=== PATIENT | male | born 1995 | race Caucasian/White ===

== ENCOUNTER 2019-06-12 21:10 | Emergency (ER) | payer MEDICAID ==
[~2019-06-12] VITALS: Ht 175.3 cm; Wt 93.0 kg
[2019-06-12 21:12] VITALS: BP 135/82
--- NOTE | 2019-06-12 21:12 | NUR ---
ED Nurse Note: PT AMBULATED TO ED FROM HOME C/O OF RIGHT RING FINGER LACERATION D/T [employer] BOWEL AT 2014. PT FINGER IS DRESSED. LACERATION IS ACTIVELY BLEEDING.
[2019-06-12] MEDS ORDERED: NKM (21:16)
--- NOTE | 2019-06-12 21:22 | Emergency Room Report ---
History of Present Illness General Chief Complaint: Laceration Source: Patient Present Illness HPI Disclaimer: Please note that this report is being documented using [employer] technology. This can lead to erroneous entry secondary to incorrect interpretation by the dictating instrument. HPI: 23-year-old otherwise healthy [id number] male presents for evaluation of laceration over the ring finger of the right hand. Patient picked up a glass salad bowl approximately 8:30 PM that broken his hand causing a laceration to the distal pad of the left ring finger. He applied pressure and achieved hemostasis. Last tetanus update was January of this year which he got for school. Notes moderate pain but states he is feeling well. Able to flex and extend the digits. No prior history of hand injury. No other complaints at this time. PMH: Denies PSH: Denies Allergies: Denies Social Hx: Denies Allergies: Coded Allergies: No Known Allergies (Unverified , 06/12/19) Nursing Documentation-PMH Past Medical History: No Stated History Review of Systems All Other Systems: negative except mentioned in HPI Physical Exam Vital Signs Date Time Temp Pulse Resp B/P (MAP) Pulse Ox O2 Delivery O2 Flow Rate FiO2 06/12/19 21:12 98.2 113 16 135/82 (99) 96 Room Air General: Awake and alert, no acute distress HEENT: NC/AT. EOMI. Resp: Normal work of breathing Skin: There is a V-shaped laceration involving the distal pad and the DIPJ of the right ring finger. This is superficial. No arterial bleeding but there is some oozing. Does not appear to involve the tendon sheaths. No debris noted. MSK: Normal tone and bulk. Moving all extremities. No obvious deformity. Laceration to the left ring finger as described above Neuro: Awake and alert. Mentating appropriately. Two-point discrimination is intact over the radial and ulnar portion of the distal tip on the right ring finger. Procedures Laceration/Wound Repair Laceration/Wound Repair : Consent: Verbal Wound Location: upper extremity - Right hand Wound's Depth, Shape: superficial, linear, flap Wound Explored: clean Betadine Prep?: Yes Anesthesia: 1% Lidocaine Volume Anesthetic (ccs): 7 Wound Debrided: None Wound Repaired With: sutures Suture Size/Type: 4:0, proline Number of Sutures: 12 Layer Closure?: No Sterile Dressing Applied?: Yes Sling Applied?: Yes Patient Tolerated: Well Complications: None Progress Wound was for approximately 10 minutes continuously Medical Decision Making Diagnostic Impression: Primary Impression: Laceration ER Course 23-year-old male presents for laceration to the right ring finger. Laceration was well approximated and closed successfully with 12 simple interrupted 4-0 Prolene sutures. He will have to have them removed in 10 to 14 days. There is significant irrigation under pressure for approximately 10 minutes on the sink and I do not believe the patient requires antibiotics at this time. We discussed signs and symptoms of infection and when to return to the emergency department. He will follow-up with his PMD for suture removal and wound reevaluation. He understands and agrees with this treatment plan was discharged home. Last Vital Signs Date Time Temp Pulse Resp B/P (MAP) Pulse Ox O2 Delivery O2 Flow Rate FiO2 06/12/19 21:12 98.2 113 16 135/82 (99) 96 Room Air Disposition: HOME, SELF-CARE Condition: Improved Johnny Edouard MD Jun 12, 2019 21:22
[2019-06-12] MEDS ORDERED: Lidocaine 1% Plain 30 ml INJ ONE (21:30)
--- NOTE | 2019-06-12 21:58 | NUR ---
ED Nurse Note: Rakel currently at bedside, providing wound care.
[2019-06-12 22:22] VITALS: BP 135/82
--- NOTE | 2019-06-12 22:22 | NUR ---
ED Nurse Note: Patient cleared for discharge, vebalized understanding of discharge instructions, Id band removed. Patient tolerated wound care well and bandage applied. Patient departed with all belongings accompanied by family members.
== END 2019-06-12 22:28 | disposition home or self-care (01) ==
LOC: EMR 21:27
DX: S61.214A Laceration without foreign body of right ring finger without damage to nail, initial encounter (principal); W25.XXXA Contact with sharp glass, initial encounter; Y92.9 Unspecified place or not applicable
CPT/HCPCS: 10060; 12001; J2001; Z7502; 99282